=== PATIENT | male | born 1985 | race Caucasian/White ===

== ENCOUNTER 2018-04-25 17:05 | Emergency (ER) | payer MEDICAID ==
--- NOTE | 2018-04-25 17:31 | ER Document Report ---
ED Medical Screen (RME) - General Chief Complaint: chest pain and breathing difficulty Stated Complaint: CHEST PAIN, DIFFICULTY BREATHING Time Seen by Provider: 04/25/18 17:21 Notes: RAPID MEDICAL EVALUATION DISCLOSURE I have seen this patient as part of a Rapid Medical Evaluation and, if applicable, placed any initially appropriate orders. The patient will be seen and fully evaluated, including a full history and physical exam, by a provider ( in Main ED or Fast Track) when a room becomes available. 32-year-old male PMH cardiac pacemaker artificial heart valves here with complaints of shortness of breath and chest pain that started yesterday but has progressively worsened. Earlier today there were at the urgent care facility and he had worsening of his symptoms with walking so they sent him here for further evaluation. He has already taken a 325 mg aspirin today. He reports that he has some blockages in his heart however has not had stents placed yet. EXAM CTAB Systolic murmur auscultated, minimal to mild Cardiac pacemaker, right chest wall TRAVEL OUTSIDE OF THE [place] IN LAST 30 DAYS: No - Related Data Allergies/Adverse Reactions: hydromorphone [From Dilaudid] Allergy (Verified 08/11/17 19:24) metoclopramide HCl [From Reglan] Allergy (Verified 08/11/17 19:12) Seizures Past Medical History - Social History Chew tobacco use (# tins/day): No Frequency of alcohol use: Occasional Drug Abuse: None Pulmonary Medical History: Reports: Hx Asthma Renal/ Medical History: Denies: Hx Peritoneal Dialysis Past Surgical History: Reports: Hx Cardiac Surgery - valve replacement surgery, pacemaker - 1999 and again September 2017, Hx Valve Replacement - Immunizations Hx Diphtheria, Pertussis, Tetanus Vaccination: Yes Physical Exam - Vital signs Vitals: Temp Pulse Resp BP Pulse Ox 98.6 F 59 L 16 122/84 99 04/25/18 17:14 04/25/18 17:14 04/25/18 17:14 04/25/18 17:14 04/25/18 17:14 Course - Vital Signs Vital signs: Temp Pulse Resp BP Pulse Ox 98.6 F 59 L 16 122/84 99 04/25/18 17:14 04/25/18 17:14 04/25/18 17:14 04/25/18 17:14 04/25/18 17:14 Doctor's Discharge - Discharge Referrals: KONSTANTIN PIMENTEL PA-C [Primary Care Provider] - Follow up as needed
--- NOTE | 2018-04-25 17:59 | RADIOLOGY REPORT (SQ) ---
EXAM DESCRIPTION: CHEST 2 VIEWS COMPLETED DATE/TIME: 04/25/2018 5:40 pm REASON FOR STUDY: CP SOB COMPARISON: March 2013 EXAM PARAMETERS: NUMBER OF VIEWS: two views TECHNIQUE: Digital Frontal and Lateral radiographic views of the chest acquired. RADIATION DOSE: NA LIMITATIONS: none FINDINGS: LUNGS AND PLEURA: No opacities, masses or pneumothorax. No pleural effusion. MEDIASTINUM AND HILAR STRUCTURES: No masses or contour abnormalities. HEART AND VASCULAR STRUCTURES: Heart normal size. No evidence for failure. BONES: No acute findings. HARDWARE: Dual chamber transvenous pacemaker is unchanged in position. Patient is status post median sternotomy. OTHER: No other significant finding. IMPRESSION: NO ACUTE RADIOGRAPHIC FINDING IN THE CHEST. TECHNICAL DOCUMENTATION: JOB ID: [id number] [employer]- All Rights Reserved Reading location - IP/workstation name: [email or web address]
[2018-04-25 18:18] LABS: ABSOLUTE BASOPHILS # (AUTO) 0.1 10^3/uL (0.0-0.2); ABSOLUTE EOSINOPHILS # (AUTO) 1.3 10^3/uL (0.0-0.6); ABSOLUTE LYMPHOCYTES (AUTO) 1.2 10^3/uL (0.5-4.7); ABSOLUTE MONOCYTES (AUTO) 0.5 10^3/uL (0.1-1.4); ABSOLUTE NEUT (AUTO) 2.6 10^3/uL (1.7-8.2); EOSINOPHILS % (AUTO) 22.5 % (0-6); HEMATOCRIT 41.7 % (37.9-51.0); HEMOGLOBIN 13.9 g/dL (13.5-17.0); LYMPHOCYTES % (AUTO) 20.8 % (13-45); MEAN CORPUSCULAR HEMOGLOBIN 30.3 pg (27.0-33.4); MEAN CORPUSCULAR HGB CONC 33.4 g/dL (32.0-36.0); MEAN CORPUSCULAR VOLUME 91 fl (80-97); MONOCYTES % (AUTO) 8.1 % (3-13); PLATELET COUNT 239 10^3/uL (150-450); RED CELL DISTRIBUTION WIDTH 13.5 % (11.5-14.0); SEGMENTED NEUTROPHILS % (AUTO) 46.6 % (42-78); TOTAL CELLS COUNTED % (AUTO) 100 %; WHITE BLOOD COUNT 5.6 10^3/uL (4.0-10.5)
[2018-04-25 18:33] LABS: ANION GAP 11 (5-19); BLOOD UREA NITROGEN 10 mg/dL (7-20); CALCIUM 9.1 mg/dL (8.4-10.2); CARBON DIOXIDE 28 mmol/L (22-30); CHLORIDE 104 mmol/L (98-107); GLUCOSE 85 mg/dL (75-110); POTASSIUM 4.7 mmol/L (3.6-5.0)
[2018-04-25 18:44] LABS: NT PRO BNP 335 pg/mL (<125)
[2018-04-25 18:46] LABS: TROPONIN I < 0.012 ng/mL
--- NOTE | 2018-04-25 20:20 | ER Document Report ---
ED Cardiac - General Chief Complaint: Chest Pain Stated Complaint: CHEST PAIN, DIFFICULTY BREATHING Time Seen by Provider: 04/25/18 17:21 Notes: Patient is a 32-year-old male comes emergency department for chief complaint of shortness of breath and a sensation of intermittent tightness and discomfort across his chest. This is been going on since yesterday. He states he thought was his asthma, went to urgent care, they referred him here. He denies wheezing , cough, fever, nausea, vomiting, abdominal pain, back pain. Past medical history is complicated including congenital heart defects, pulmonary valve replacement, he supposed to have a pulmonary valve replacement performed again on the of this month at [facility], he states he had a cardiac cath in [place] 2 months ago, he does not have any stents, he also has a pacemaker. TRAVEL OUTSIDE OF THE [place] IN LAST 30 DAYS: No - Related Data Allergies/Adverse Reactions: hydromorphone [From Dilaudid] Allergy (Verified 08/11/17 19:24) metoclopramide HCl [From Reglan] Allergy (Verified 08/11/17 19:12) Seizures Past Medical History - General Information source: Patient - Social History Smoking Status: Current Some Day Smoker Chew tobacco use (# tins/day): No Frequency of alcohol use: Occasional Drug Abuse: None Lives with: Family Family History: Reviewed & Not Pertinent Patient has suicidal ideation: No Patient has homicidal ideation: No Pulmonary Medical History: Reports: Hx Asthma Renal/ Medical History: Denies: Hx Peritoneal Dialysis Past Surgical History: Reports: Hx Cardiac Surgery - valve replacement surgery, pacemaker - 1999 and again September 2017, Hx Valve Replacement - Immunizations Hx Diphtheria, Pertussis, Tetanus Vaccination: Yes Review of Systems - Review of Systems Constitutional: No symptoms reported EENT: No symptoms reported Cardiovascular: See HPI Respiratory: See HPI Gastrointestinal: No symptoms reported Genitourinary: No symptoms reported Male Genitourinary: No symptoms reported Musculoskeletal: No symptoms reported Skin: No symptoms reported Hematologic/Lymphatic: No symptoms reported Neurological/Psychological: No symptoms reported Physical Exam - Vital signs Vitals: Temp Pulse Resp BP Pulse Ox 98.6 F 59 L 16 122/84 99 04/25/18 17:14 04/25/18 17:14 04/25/18 17:14 04/25/18 17:14 04/25/18 17:14 - Notes Notes: GENERAL: Alert, interacts well. No acute distress. HEAD: Normocephalic, atraumatic. EYES: Pupils equal, round, and reactive to light. Extraocular movements intact. ENT: Oral mucosa moist, tongue midline. NECK: Full range of motion. Supple. Trachea midline. LUNGS: Clear to auscultation bilaterally, no wheezes, rales, or rhonchi. No respiratory distress. HEART: Borderline bradycardia. Loud murmur heard throughout, systolic. Otherwise unremarkable. ABDOMEN: Soft, non-tender. Non-distended. Bowel sounds present in all 4 quadrants. EXTREMITIES: Moves all 4 extremities spontaneously. No edema, normal radial and dorsalis pedis pulses bilaterally. No cyanosis. BACK: no cervical, thoracic, lumbar midline tenderness. No saddle anesthesia, normal distal neurovascular exam. NEUROLOGICAL: Alert and oriented x3. Normal speech. [cranial nerves II through XII grossly intact]. PSYCH: Normal affect, normal mood. SKIN: Warm, dry, normal turgor. No rashes or lesions noted. Course - Re-evaluation Re-evalutation: On my evaluation patient denying shortness of breath. He has generalized body aches along with aches over his chest which are intermittent. He states this is become normal for him recently. He has a close follow-up with [facility] on the where he is supposed to get a valve replacement and additional evaluation and workup. EKG showing paced rhythm without significant change from prior. Chest x-ray unremarkable. CBC, chemistry unremarkable except for mild eosinophilia which is actually consistent with prior. Troponin is negative. D-dimer is negative. BNP in the 300s which is consistent with prior. No vascular congestion on chest x-ray, clear lungs on auscultation, no lower extremity edema. Vital signs unremarkable. Troponin cycled and is negative. I spoke with patient, discussed calling his catcher helper at [facility] to discuss additional evaluation, patient declines, states that he just wanted to be checked, he feels fine, he does not feel any different than how he has felt recently in general, and he wants to leave now. He does agree that if he worsens he will return. Because of his negative workup , nonspecific symptoms, good followup, and reports that he is not different than recently patient was discharged with return precautions. He does agree to call his provider in the morning. - Vital Signs Vital signs: Temp Pulse Resp BP Pulse Ox 98.7 F 59 L 16 108/80 100 04/25/18 22:02 04/25/18 17:14 04/25/18 21:53 04/25/18 21:53 04/25/18 21:53 - Laboratory Result Diagrams: 04/25/18 18:00 04/25/18 18:00 Laboratory results interpreted by me: 04/25/18 04/25/18 18:00 18:00 Eosinophils % 22.5 H Absolute Eosinophils 1.3 H NT-Pro-B Natriuret Pep 335 H Discharge - Discharge Clinical Impression: Shortness of breath, Body aches Chest pain Qualifiers: Chest pain type: unspecified Qualified Code(s): R07.9 - Chest pain, unspecified Condition: Stable Disposition: HOME, SELF-CARE Additional Instructions: Your workup does not show any concerning findings at this time. Call your catcher helper tomorrow for close follow-up and additional management. Return if you worsen including returned or increased pain, difficulty breathing , fever, passing out, or any other concerning symptoms. Referrals: KONSTANTIN PIMENTEL PA-C [NO LOCAL MD] - Follow up as needed
[2018-04-25 22:01] VITALS: BP 108/80
--- NOTE | 2018-04-25 22:20 | EKG REPORT ---
SEVERITY:- ABNORMAL ECG - ATRIAL-VENTRICULAR DUAL-PACED RHYTHM : Confirmed by: Monty Tsang 25-Apr-2018 22:20:24
== END 2018-04-25 21:56 | disposition home or self-care (01) ==
LOC: ER 17:05
DX: M79.1 Myalgia (principal); R06.02 Shortness of breath; R07.9 Chest pain, unspecified; R06.00 Dyspnea, unspecified; F17.200 Nicotine dependence, unspecified, uncomplicated; Z95.0 Presence of cardiac pacemaker; Z95.2 Presence of prosthetic heart valve
CPT/HCPCS: 36415; 71046; 80048; 83880; 84484; 85025; 85379; 93005; 93010; 99285